=== PATIENT | female | born 1970 | race Caucasian/White ===

== ENCOUNTER 2019-03-14 15:35 | Inpatient (IN) | payer BC ==
[2019-03-14 20:18] VITALS: BMI 22.8
--- NOTE | 2019-03-14 20:36 | HP ---
CIWA Score Nausea/Vomitin-Mild Nausea/No Vomiting Muscle Tremors: 2 Anxiety: 3 Agitation: 2 Paroxysmal Sweats: 1-Minimal Palms Moist Orientation: 0-Oriented Tacttile Disturbances: 2-Mild Itch/Numbness/Burn Auditory Disturbances: 1-Very Mild Visual Disturbances: 1-Very Mild Sensitivity Headache: 2-Mild CIWA-Ar Total Score: 15 - Admission Criteria OASAS Guidelines: Admission for Medically Managed Detox: Requires at least one of the followin. CIWA greater than 12 2. Seizures within the past 24 hours 3. Delirium tremens within the past 24 hours 4. Hallucinations within the past 24 hours 5. Acute intervention needed for co occurring medical disorder 6. Acute intervention needed for co occurring psychiatric disorder 7. Severe withdrawal that cannot be handled at a lower level of care (continued vomiting, continued diarrhea, abnormal vital signs) requiring intravenous medication and/or fluids 8. Admission ROS [facility] - [facility] Chief Complaint: Withdrawal symptoms Allergies/Adverse Reactions: Allergies Allergy/AdvReac Type Severity Reaction Status Date / Time No Known Allergies Allergy Verified 03/14/19 20:35 History of Present Illness: 48 y.o. woman is here seeking her first admission to detox for alcohol abuse. She reports she started abusing alcohol one and a half years ago after losing her job. She reports she started experiencing blackouts 6 months ago. Exam Limitations: No Limitations - Ebola screening Have you traveled outside of the country in the last 21 days: No (N) Have you had contact with anyone from an Ebola affected area: No Do you have a fever: No - Review of Systems Constitutional: Loss of Appetite, Unintentional Wgt. Loss EENT: reports: Tearing, Nose Congestion Respiratory: reports: No Symptoms reported Cardiac: reports: No Symptoms Reported GI: reports: No Symptoms Reported : reports: No Symptoms Reported Musculoskeletal: reports: No Symptoms Reported Integumentary: reports: No Symptoms Reported Neuro: reports: Headache, Tremors, Other (Syncope) Endocrine: reports: No Symptoms Reported Hematology: reports: No Symptoms Reported Psychiatric: reports: Anxious, Depressed Other Systems: Reviewed and Negative Patient History - Patient Medical History Hx Anemia: No Hx Asthma: No Hx Chronic Obstructive Pulmonary Disease (COPD): No Hx Cancer: No Hx Cardiac Disorders: No Hx Congestive Heart Failure: No Hx Hypercholesterolemia: No Hx Pacemaker: No HX Cerebrovascular Accident: No Hx Seizures: No (Experiences ETOH induced blackouts ) Hx Dementia: No Hx Diabetes: No Hx Gastrointestinal Disorders: Yes (Omeprazole ) Hx Liver Disease: No Hx Genitourinary Disorders: No Hx Sexually Transmitted Disorders: No Hx Renal Disease (ESRD): No Hx Thyroid Disease: No Hx Human Immunodeficiency Virus (HIV): No Hx Hepatitis C: No Hx Depression: Yes Hx Suicide Attempt: No Hx Bipolar Disorder: No Hx Schizophrenia: No - Patient Surgical History Hx Abdominal Surgery: Yes (Hernia repair at 9 y.o. ) Anesthesia Reaction: No - PPD History Previous Implant?: Yes Documented Results: Negative w/o proof PPD to be Administered?: Yes - Reproductive History Patient is a Female of Child Bearing Age (11 -55 yrs old): Yes Last Menstrual Period: 03/14/19 Patient : No - Smoking Cessation Smoking history: Never smoked Have you smoked in the past 12 months: No - Substance & Tx. History Hx Alcohol Use: Yes Hx Substance Use: No Substance Use Type: Alcohol Hx Substance Use Treatment: No - Substances abused Alcohol Substance route: Oral Frequency: Daily Amount used: 1 pint of liquor Age of first use: 13 Date of last use: 03/13/19 Family Disease History - Family Disease History Family Disease History: Respiratory: Mother (ETOH dependence), Other: Mother Admission Physical Exam [facility] - Vital Signs Vital Signs: Vital Signs - 24 hr 03/14/19 20:15 Temperature 97.8 F Pulse Rate 85 Respiratory 18 Rate Blood Pressure 121/82 - Physical General Appearance: Yes: Irritable, Sweating, Anxious HEENTM: Yes: Hearing grossly Normal, Normocephalic, Normal Voice Respiratory: Yes: Chest Non-Tender, Lungs Clear, Normal Breath Sounds, No Respiratory Distress, No Accessory Muscle Use Neck: Yes: Within Normal Limits Breast: Yes: Breast Exam Deferred Cardiology: Yes: Regular Rhythm, Regular Rate Abdominal: Yes: Normal Bowel Sounds, Non Tender, Flat Genitourinary: Yes: Other (No complaints reported) Back: Yes: Normal Inspection Musculoskeletal: Yes: full range of Motion, Gait Steady, Pelvis Stable Extremities: Yes: Normal Capillary Refill, Normal Inspection Neurological: Yes: Alert, Normal Mood/Affect, Normal Response Integumentary: Yes: Normal Color, Dry, Warm Lymphatic: Yes: Within Normal Limits - Diagnostic (1) Uncomplicated alcohol dependence Current Visit: Yes Status: Chronic (2) Syncope Current Visit: Yes Status: Acute (3) GERD (gastroesophageal reflux disease) Current Visit: Yes Status: Acute (4) Seasonal allergies Current Visit: Yes Status: Acute Cleared for Admission [facility] - Detox or Rehab [facility] Level of Care: Medically Managed (Client to be detox using Ativan.) Claeared for Rehab Admission: No Breathalyzer - Breathalyzer Breathalyzer: 0 POC Urine test - Test device test lot number: [id number] Expiration date: 07/29/20 - Control test control: Yes - Result Urine Test Results: Negative - NO line present Urine Drug Screen - Test Device Lot number: [id number] Expiration date: 10/28/20 - Control Is test valid?: Yes - Results Drug screen NEGATIVE: No Urine drug screen results: BZO-Benzodiazepines Inpatient Rehab Admission - Rehab Decision to Admit Inpatient rehab admission?: No
[2019-03-14] MEDS ORDERED: MAGNESIUM CITRATE 300 ML BOTTLE PO PRN (21:05)
[2019-03-14] MEDS ORDERED: MAGNESIUM HYDROX 2400MG/30ML ORAL SUSPENSION 30 ML CUP PO PRN (21:05)
[2019-03-14] MEDS ORDERED: IBUPROFEN 400 MG TABLET (FP) PO PRN (21:05)
[2019-03-14] MEDS ORDERED: hydrOXYzine PAMOATE 50 MG CAPSULE (FP) PO PRN (21:05)
[2019-03-14] MEDS ORDERED: METHOCARBAMOL 500 MG TABLET PO PRN (21:05)
[2019-03-14] MEDS ORDERED: MAG HYDROX/AL HYDROX/SIMETH 30 ML UNIT-DOSE CUP PO PRN (21:05)
[2019-03-14] MEDS ORDERED: BISMUTH SUBSALICYLATE 524 MG/30 ML UD PO PRN (21:05)
[2019-03-14] MEDS ORDERED: MENTHOL/PHENOL 1 EACH UD MM PRN (21:05)
[2019-03-14] MEDS ORDERED: LORazepam 1 MG TABLET PO PRN (21:05)
[2019-03-14] MEDS ORDERED: MELATONIN 5 MG TABLETS PO PRN (21:05)
[2019-03-14] MEDS ORDERED: DICYCLOMINE HCL 10 MG CAPSULE PO PRN (21:05)
[2019-03-14] MEDS ORDERED: ONDANSETRON *ODT* 4 MG TABLET SL PRN (21:05)
[2019-03-14] MEDS ORDERED: ACETAMINOPHEN 325 MG TABLET (FP) PO PRN ×2 (21:05)
[2019-03-14] MEDS ORDERED: PANTOPRAZOLE 20 MG TABLET (FP) PO PRN (21:16)
[2019-03-14] MEDS ORDERED: LORazepam 2 MG TABLET PO ONE (21:45)
[2019-03-14] MEDS: THIAMINE HCL 100 MG TABLET (FP) PO SCH (22:58)
[2019-03-14] MEDS: GABAPENTIN 300 MG CAPSULE (FP) PO SCH (22:59)
[2019-03-14] MEDS: LORazepam 2 MG TABLET PO SCH (22:59)
[2019-03-15] MEDS: GABAPENTIN 300 MG CAPSULE (FP) PO SCH ×3 (06:19→22:01)
[2019-03-15] MEDS: LORazepam 2 MG TABLET PO SCH ×3 (06:19→17:17)
[2019-03-15] MEDS: PRENATAL VITAMINS W/ FOLIC ACID TABLET (FP) PO SCH (10:30)
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
--- NOTE | 2019-03-15 12:24 | EKG ---
Test Reason : Blood Pressure : / mmHG Vent. Rate : 081 BPM Atrial Rate : 081 BPM P-R Int : 160 ms QRS Dur : 096 ms QT Int : 392 ms P-R-T Axes : 068 -46 069 degrees QTc Int : 455 ms NORMAL SINUS RHYTHM LEFT AXIS DEVIATION INCOMPLETE RIGHT BUNDLE BRANCH BLOCK NONSPECIFIC T WAVE ABNORMALITY ABNORMAL ECG NO PREVIOUS ECGS AVAILABLE Confirmed by JOJO MUELLER MD ([id number]) on 03/15/2019 12:24:01 PM Referred By: Confirmed By:JOJO MUELLER MD
--- NOTE | 2019-03-15 12:25 | EKG ---
Test Reason : Blood Pressure : / mmHG Vent. Rate : 101 BPM Atrial Rate : 101 BPM P-R Int : 162 ms QRS Dur : 100 ms QT Int : 352 ms P-R-T Axes : 065 -37 067 degrees QTc Int : 456 ms SINUS TACHYCARDIA LEFT AXIS DEVIATION INCOMPLETE RIGHT BUNDLE BRANCH BLOCK NONSPECIFIC T WAVE ABNORMALITY ABNORMAL ECG WHEN COMPARED WITH ECG OF 14-MAR-2019 20:49, NO SIGNIFICANT CHANGE WAS FOUND Confirmed by ERVIN CELAYA, JOJO ([id number]) on 03/15/2019 12:24:42 PM Referred By: GABY CLAUDIO Confirmed By:JOJO MUELLER MD
--- NOTE | 2019-03-15 12:35 | PN ---
S CIWA - CIWA Score Nausea/Vomitin-No Nausea/No Vomiting Muscle Tremors: 3 Anxiety: 3 Agitation: 4-Moderately Restless Paroxysmal Sweats: 3 Orientation: 0-Oriented Tacttile Disturbances: 0-None Auditory Disturbances: 0-None Visual Disturbances: 0-None Headache: 1-Very Mild CIWA-Ar Total Score: 14 BHS Progress Note (SOAP) Subjective: agitation headache sweats irritable shakes interrupted sleep Objective: 03/15/19 12:34 Vital Signs Temperature 98.2 F 03/15/19 10:30 Pulse Rate 91 H 03/15/19 10:30 Respiratory Rate 18 03/15/19 10:30 Blood Pressure 109/70 03/15/19 10:30 O2 Sat by Pulse Oximetry (%) labs pending aaox3 ambulating no acute distress Assessment: 03/15/19 12:35 withdrawal sx Plan: continue detox increase fluids pending labs
[2019-03-15 13:04] LABS: ALBUMIN 3.4 g/dl (3.4-5.0); ALK PHOS 67 U/L (45-117); ANION GAP 4 MMOL/L (8-16); BILIRUBIN,TOTAL 0.2 mg/dL (0.2-1); BLOOD UREA NITROGEN 11 mg/dL (7-18); CALCIUM 8.9 mg/dL (8.5-10.1); CHLORIDE 105 mmol/L (98-107); CO2 29 mmol/L (21-32); CREATININE 0.8 mg/dL (0.55-1.3); GLUCOSE,RANDOM 88 mg/dL (74-106); POTASSIUM 4.6 mmol/L (3.5-5.1); SGOT/AST 16 U/L (15-37); SGPT/ALT 22 U/L (13-61); SODIUM 138 mmol/L (136-145); TOT PROT 6.8 g/dl (6.4-8.2)
[2019-03-15 13:29] LABS: HEMATOCRIT 38.1 % (32.4-45.2); HEMOGLOBIN 12.7 GM/dL (10.7-15.3); MCH 30.6 pg (25.7-33.7); MCHC 33.3 g/dl (32.0-36.0); MEAN CELL VOLUME 91.7 fl (80-96); MEAN PLT VOLUME 6.9 fl (7.5-11.1); PLATELET COUNT 383 K/MM3 (134-434); RBC 4.15 M/mm3 (3.60-5.2); RDW 14.2 % (11.6-15.6); WHITE BLOOD COUNT 6.5 K/mm3 (4.0-10.0)
--- NOTE | 2019-03-15 13:43 | PN ---
S Progress Note Note: received call from RN that pt fell. asked pt about her fall; pt states she by mistake missed the chair when about to sit. she states she landed on her buttock. pt assessed no c/o pain/discomfort. no s/s of bruising or abrasion. tylenol/motrin prn ordered if she c/o of any discomfort. continue to monitor.
[2019-03-15] MEDS ORDERED: GABAPENTIN 300 MG CAPSULE (FP) PO SCH (14:00)
[2019-03-15] MEDS: LORazepam 1 MG TABLET PO SCH (22:00)
[2019-03-15] MEDS: THIAMINE HCL 100 MG TABLET (FP) PO SCH (22:01)
[2019-03-15] MEDS: AMITRIPTYLINE HCL 100 MG TABLET PO SCH (22:30)
[2019-03-16] MEDS: LORazepam 1 MG TABLET PO SCH ×3 (05:36→17:29)
[2019-03-16] MEDS: GABAPENTIN 300 MG CAPSULE (FP) PO SCH ×3 (05:36→22:35)
[2019-03-16] MEDS: PRENATAL VITAMINS W/ FOLIC ACID TABLET (FP) PO SCH (11:08)
--- NOTE | 2019-03-16 13:15 | PN ---
S CIWA - CIWA Score Nausea/Vomitin-No Nausea/No Vomiting Muscle Tremors: 3 Anxiety: 2 Agitation: 2 Paroxysmal Sweats: 2 Orientation: 0-Oriented Tacttile Disturbances: 0-None Auditory Disturbances: 0-None Visual Disturbances: 0-None Headache: 0-None Present CIWA-Ar Total Score: 9 BHS Progress Note (SOAP) Subjective: sweats irritable agitation tired Objective: 03/16/19 13:14 Vital Signs Temperature 98.2 F 03/16/19 10:57 Pulse Rate 90 03/16/19 10:57 Respiratory Rate 18 03/16/19 10:57 Blood Pressure 137/94 03/16/19 10:57 O2 Sat by Pulse Oximetry (%) Laboratory Tests 03/15/19 03/15/19 03/15/19 07:00 07:00 10:30 WBC 6.5 RBC 4.15 Hgb 12.7 Hct 38.1 MCV 91.7 MCH 30.6 MCHC 33.3 RDW 14.2 Plt Count 383 MPV 6.9 L Sodium 138 Potassium 4.6 Chloride 105 Carbon Dioxide 29 Anion Gap 4 L BUN 11 Creatinine 0.8 Creat Clearance w eGFR 76.24 Random Glucose 88 Calcium 8.9 Total Bilirubin 0.2 AST 16 ALT 22 Alkaline Phosphatase 67 Total Protein 6.8 Albumin 3.4 RPR Titer Nonreactive aaox3 ambulating no acute distress Assessment: 03/16/19 13:15 withdrawal sx Plan: continue detox increase fluids
[2019-03-16] MEDS: LORazepam 0.5 MG TABLET PO SCH (22:34)
[2019-03-16] MEDS: THIAMINE HCL 100 MG TABLET (FP) PO SCH (22:35)
[2019-03-16] MEDS: AMITRIPTYLINE HCL 100 MG TABLET PO SCH (22:35)
[2019-03-16] MEDS ORDERED: LORazepam 0.5 MG TABLET PO PRN (23:00)
[2019-03-17] MEDS: LORazepam 0.5 MG TABLET PO SCH (05:46)
[2019-03-17] MEDS: GABAPENTIN 300 MG CAPSULE (FP) PO SCH (05:46)
--- NOTE | 2019-03-17 08:58 | DS ---
[facility] Detox Discharge Summary Admission Date: 03/14/19 Discharge Date: 03/17/19 - History Present History: Alcohol Dependence Additional Comments: Vital Signs Temperature 98.6 F 03/17/19 11:41 Pulse Rate 102 H 03/17/19 11:41 Respiratory Rate 20 03/17/19 11:41 Blood Pressure 106/72 03/17/19 11:41 O2 Sat by Pulse Oximetry (%) Laboratory Last Values WBC 6.5 K/mm3 (4.0-10.0) 03/15/19 07:00 RBC 4.15 M/mm3 (3.60-5.2) 03/15/19 07:00 Hgb 12.7 GM/dL (10.7-15.3) 03/15/19 07:00 Hct 38.1 % (32.4-45.2) 03/15/19 07:00 MCV 91.7 fl (80-96) 03/15/19 07:00 MCH 30.6 pg (25.7-33.7) 03/15/19 07:00 MCHC 33.3 g/dl (32.0-36.0) 03/15/19 07:00 RDW 14.2 % (11.6-15.6) 03/15/19 07:00 Plt Count 383 K/MM3 (134-434) 03/15/19 07:00 MPV 6.9 fl (7.5-11.1) L 03/15/19 07:00 Sodium 138 mmol/L (136-145) 03/15/19 10:30 Potassium 4.6 mmol/L (3.5-5.1) 03/15/19 10:30 Chloride 105 mmol/L (98-107) 03/15/19 10:30 Carbon Dioxide 29 mmol/L (21-32) 03/15/19 10:30 Anion Gap 4 MMOL/L (8-16) L 03/15/19 10:30 BUN 11 mg/dL (7-18) 03/15/19 10:30 Creatinine 0.8 mg/dL (0.55-1.3) 03/15/19 10:30 Creat Clearance w eGFR 76.24 (>60) 03/15/19 10:30 Random Glucose 88 mg/dL (74-106) 03/15/19 10:30 Calcium 8.9 mg/dL (8.5-10.1) 03/15/19 10:30 Total Bilirubin 0.2 mg/dL (0.2-1) 03/15/19 10:30 AST 16 U/L (15-37) 03/15/19 10:30 ALT 22 U/L (13-61) 03/15/19 10:30 Alkaline Phosphatase 67 U/L (45-117) 03/15/19 10:30 Total Protein 6.8 g/dl (6.4-8.2) 03/15/19 10:30 Albumin 3.4 g/dl (3.4-5.0) 03/15/19 10:30 RPR Titer Nonreactive (NONREACTIVE) 03/15/19 07:00 - Physical Exam Results Vital Signs: Vital Signs Temperature 97.0 F L 03/17/19 06:00 Pulse Rate 94 H 03/17/19 06:00 Respiratory Rate 18 03/17/19 06:00 Blood Pressure 121/78 03/17/19 06:00 O2 Sat by Pulse Oximetry (%) - Treatment Hospital Course: Detox Protocol Followed, Detoxed Safely, Responded well, Discharged Condition Good, Rehab Referral Accepted Patient has Accepted a Rehab Referral to: Out Patient at [facility] - Medication Discharge Medications: Ambulatory Orders Amitriptyline HCl [Elavil -] 200 mg PO HS 03/14/19 Cetirizine HCl [Zyrtec -] 10 mg PO DAILY PRN 03/14/19 Gabapentin 600 mg PO TID 03/14/19 LORazepam [Ativan] 1 mg PO TID 03/14/19 Amitriptyline HCl [Elavil -] 200 mg PO HS #60 tablet 03/17/19 Gabapentin 600 mg PO TID #90 tablet 03/17/19 Omeprazole 20 mg PO DAILY PRN 30 Days capsule. 03/17/19 - Diagnosis (1) GERD (gastroesophageal reflux disease) Status: Chronic (2) Anxiety disorder Status: Chronic (3) Uncomplicated alcohol dependence Status: Chronic - AMA Did Patient Leave Against Medical Advice: No
--- NOTE | 2019-03-17 09:02 | PN ---
[facility] Progress Note Note: Vital Signs Temperature 97.0 F L 03/17/19 06:00 Pulse Rate 94 H 03/17/19 06:00 Respiratory Rate 18 03/17/19 06:00 Blood Pressure 121/78 03/17/19 06:00 O2 Sat by Pulse Oximetry (%) Patient requested early discharge. Reports no withdrawal symptoms at this time. Denies SI/HI. Patient medically stable for discharge. Labs noted. Patient to follow up with PCP and return to her out patient program [facility] (patient reports attending 2x per week prior to detox admission) If worsening symptoms are present patient advised to seek medial attention.
[2019-03-17] MEDS: PRENATAL VITAMINS W/ FOLIC ACID TABLET (FP) PO SCH (10:24)
--- NOTE | 2019-03-17 10:41 | PN ---
[facility] Progress Note Note: Patient is scheduled for discharge today. Scripts for 30 days supply of medications(Elavil 100mg/hs & Gabapentin 600 mg/bid) are electronically transmitted to [facility] at [address] [place], [place] [id number]
[2019-03-17 11:41] VITALS: BP 106/72; PULSE 102; TEMP 98.6
== END 2019-03-17 11:07 | disposition home or self-care (01) | DRG 897 ==
LOC: YASAS 15:35 → Y6N 21:32
PROVIDERS: ADMIT Surgery; ATTEND Surgery
PROC: HZ2ZZZZ Detoxification Services for Substance Abuse Treatment (ICD-10-PCS; principal; 2019-03-14)
DX: F10.230 Alcohol dependence with withdrawal, uncomplicated (principal); F10.280 Alcohol dependence with alcohol-induced anxiety disorder; F10.282 Alcohol dependence with alcohol-induced sleep disorder; F32.9 Major depressive disorder, single episode, unspecified; F41.9 Anxiety disorder, unspecified; K21.9 Gastro-esophageal reflux disease without esophagitis
CPT/HCPCS: 36415; 80053; 85027; 86593; 93005; 93010